=== PATIENT | male | born 1955 | race Caucasian/White ===

== ENCOUNTER 2016-07-26 07:36 | Emergency (ER) | payer OTHER ==
[~2016-07-26] VITALS: Ht 165.1 cm; Wt 72.6 kg
[~2016-07-26 07:36] MED LIST: AMOXIL500 MG PO; AUGMENTIN 875 M1 TAB PO; AVAPRO150 M1 PO; CILOXAN0.3% OPH; FLEXERIL10 MG PO; FLOMAX0.4 M1 PO; PREDNISONE 20MG20 MG PO; PREDNISONE10 MG PO; TRAMADOL50 MG PO; ULTRAM(MONOGRAP50 MG PO; ZETIA10 M1 PO
[2016-07-26 07:40] VITALS: BP 146/92
[2016-07-26] MEDS ORDERED: HYDROCHLOROTH12.5 M3 PO (08:18)
[2016-07-26] MEDS ORDERED: LIDOCAINE HCL V15 ML PO (08:21)
[2016-07-26] MEDS ORDERED: MEDROL4 M2 PO (08:21)
[2016-07-26] MEDS ORDERED: CLEOCIN HCL300 M1 PO (08:21)
--- NOTE | 2016-07-26 08:22 | ED THROAT/DENTAL COMPLAINT ---
History of Present Illness General Chief Complaint: Sore Throat, Dental Pain Stated Complaint: SORE THROAT Source: patient Exam Limitations: no limitations Vital Signs & Intake/Output Vital Signs & Intake/Output Vital Signs Date Time Temp Pulse Resp B/P Pulse O2 O2 Flow FiO2 Ox Delivery Rate 07/26 0740 98.2 100 18 146/92 95 Room Air Allergies Coded Allergies: azithromycin (From ZITHROMAX) (Intermediate, HIVES 07/26/16) Penicillins (DIARRHEA 08/02/15) Reconcile Medications Clindamycin HCl (Cleocin HCl) 300 MG CAPSULE 1 CAP PO TID tonsilitis Ezetimibe (Zetia) 10 MG TABLET 1 TAB PO DAILY CHOLESTEROL (Reported) Hydrochlorothiazide 12.5 MG CAPSULE 1 CAP PO DAILY WATER PILL (Reported) Irbesartan (Avapro) 150 MG TABLET 1 TAB PO DAILY HTN (Reported) Lidocaine HCl (Lidocaine HCl Viscous) 2 % SOLUTION 15 ML PO 4 TIMES/DAY sore throat Methylprednisolone. (Medrol) 4 MG TAB.DS.PK 1 DP PO AD tonsilitis 6 on day 1 then reduce by one tablet daily until gone Tamsulosin HCl (Flomax) 0.4 MG CAP.ER.24H 1 CAP PO DAILY PRN PROSTATE ( Reported) Triage Note: COMPLAINS OF SORE THROAT THAT STARTED YESTERDAY . ABLE TO SWALLOW BUT WITH PAIN. AFEBRILE AT TRIAGE Triage Nurses Notes Reviewed? yes Onset: Gradual Duration: day(s): (2) Timing: no prior history Injury Environment: home Severity: moderate Severity Numbers: 7 Modifying Factors: Worsens With: other (swallowing). HPI: Patient is a 60-year-old male presenting to the emergency department with chief complaint of sore throat that started yesterday progressively getting worse. Strep throat is sharp stabbing worse with swallowing. He reports that the right side is worse. Denies any fevers chills nausea vomiting chest pain or shortness of breath. No sick contacts or travel. He does smoke daily. Denies taking anything to help with sore throat. (SIMONE CYR) Past History Travel History Traveled to [place] past 21 day No Medical History Any Pertinent Medical History? see below for history Neurological: intracranial aneurysm Bleeding of aneurysm status post post clipping in 87 EENT: NONE Cardiovascular: hypertension, hyperlipidemia Respiratory: NONE Gastrointestinal: diverticulosis lower GI bleed Hepatic: NONE Renal: benign prost hyperplasia, bilateral kidney cysts Musculoskeletal: right wrist and left foot sprain R TENNIS ELBOW Psychiatric: NONE Endocrine: NONE Blood Disorders: NONE Cancer(s): NONE C[employer] COUN[employer]EDER/Reproductive: NONE Tetanus Vaccine: 02/23/13 Surgical History Surgical History: intracranial aneurysm bleeding status post clipping in 1997 CYST IN NECK Psychosocial History Who do you live with Spouse Services at Home None What is your primary language British Tobacco Use: Current Daily Use Daily Tobacco Use Amount/Type: => 5 Cigarettes daily ETOH Use: denies use Illicit Drug Use: denies illicit drug use Family History Family History, If Any: MOTHER (breast cancer). FATHER (congestive heart failure). Hx Contributory? No (SIMONE CYR) Review of Systems Review of Systems Constitutional: Reports: no symptoms. Comments Review of systems: See HPI, All other systems negative. Constitutional, no chills fever or weight loss HEENT: No visual changes no congestion Cardiovascular: No chest pain ,palpitation , orthopnea or ankle swelling Skin, no jaundice no rashes Respiratory: No dyspnea cough sputum or hemoptysis GI: No nausea no vomiting Muscle skeletal: no back pain, no neck pain, Neurologic: No numbness no confusion Psych: No stress anxiety or depression,. Heme/endocrine: No bruising no bleeding no polyuria or polydipsia Immunology: No splenectomy or history of AIDS (SIMONE CYR) Physical Exam Physical Exam General Appearance: well developed/nourished, no apparent distress, alert, awake , comfortable Mouth/Throat: pharyngeal erythema. Comments: Well-developed well-nourished person in no acute distress HEENT: Pupils equally round and reactive to light and accommodation. Nose is atraumatic. External auditory canal and Tympanic membranes clear. Pharynx injected, moderate erythema. Right tonsil appears enlarged. No obvious signs of peritonsillar abscess. Uvula midline. Clearing secretions without difficulty. No swelling or edema. Neck: Supple, mild anterior cervical lymphadenopathy bilaterally, nontender, normal range of motion without pain or tenderness Back: Nontender Cardiovascular: Regular rate and rhythms no murmurs rubs or gallops, normal JVP Respiratory: Chest nontender. No respiratory distress.breath sounds clear to auscultation bilaterally Extremity: No edema Neuro: Alert oriented x3 Skin: No appreciable rash on exposed skin, skin is warm and dry. Psych: Mood and affect is normal, memory and judgment is normal. Core Measures ACS in differential dx? No Severe Sepsis Present: No Septic Shock Present: No (SIMONE CYR) Progress Differential Diagnosis: tonsillitis, strep, peritonsillar abscess, lymphadenopathy Plan of Care: Orders Procedure Date/time Status THROAT CULTURE W/QUICK STREP 07/26 0737 Active Departure Departure Time of Disposition: 813 Disposition: HOME OR SELF CARE Condition: Stable Clinical Impression Primary Impression: Acute tonsillitis Referrals: ASHLYN VALDEZ,MARIAN MONTES (PCP/Family) Additional Instructions: Follow-up with ear nose and throat call to make an appointment. Take antibiotics as prescribed. Take prednisone as prescribed. Return for worsening symptoms or concerns. Use mouthwash as directed to help with sore throat. Return for worsening symptoms or concerns. Departure Forms: Customer Survey General Discharge Information Prescriptions: Current Visit Scripts Methylprednisolone. (Medrol) 1 DP PO AD #1 DP 6 on day 1 then reduce by one tablet daily until gone Clindamycin HCl (Cleocin HCl) 1 CAP PO TID #30 CAP Lidocaine HCl (Lidocaine HCl Viscous) 15 ML PO 4 TIMES/DAY #200 ML (SIMONE CYR) PA/MILL BEAM FITTER Co-Sign Statement Statement: ED Attending supervision documentation- [] I saw and evaluated the patient. I have also reviewed all the pertinent lab results and diagnostic results. I agree with the findings and the plan of care as documented in the PA's/MILL BEAM FITTER's documentation. x I have reviewed the ED Record and agree with the PA's/MILL BEAM FITTER's documentation. [] Additions or exceptions (if any) to the PAs/MILL BEAM FITTER's note and plan are summarized below: [] (DONOVAN VALDEZ,YUNIOR)
== END 2016-07-26 08:30 ==
LOC: ERH 07:36
DX: J03.90 Acute tonsillitis, unspecified (principal); Z72.0 Tobacco use